=== PATIENT | female | born 1955 | race Caucasian/White ===

== ENCOUNTER 2017-12-25 13:16 | Emergency (ER) | payer BC ==
[~2017-12-25] VITALS: Ht 162.6 cm; Wt 72.6 kg
[2017-12-25 13:21] VITALS: BP_SYST 133
--- NOTE | 2017-12-25 13:24 | NUR ---
Patient to ER bed 08 to gown for evaluation. Side rails up.
--- NOTE | 2017-12-25 13:30 | NUR ---
Pt presents to ER c/o 09/25 pain on R index finger. Pt reportedly smashed her finger on car door. Pt denies any other complaints at this time. AOX4, ambulatory, no signs of acute distress.
--- NOTE | 2017-12-25 13:35 | NUR ---
ER at bedside examining patient.
--- NOTE | 2017-12-25 13:48 | NUR ---
Patient ambulated to radiology, accompanied by rad staff.
--- NOTE | 2017-12-25 14:18 | NUR ---
Pt's R index finger cleansed and dressing applied.
[2017-12-25 14:20] VITALS: BP_SYST 133
--- NOTE | 2017-12-25 14:20 | NUR ---
Patient given written and verbal discharge instructions and verbalizes understanding. ER MD discussed with patient the results and treatment provided. Patient in stable condition. ID arm band removed. Rx of Clindamycin given. Patient educated on pain management and to follow up with PMD. Pain Scale 3/10. Opportunity for questions provided and answered. Medication side effect fact sheet provided.
== END 2017-12-25 14:20 | disposition home or self-care (01) ==
LOC: SED 13:16
DX: S61.214A Laceration without foreign body of right ring finger without damage to nail, initial encounter (principal); I10 Essential (primary) hypertension; Z88.0 Allergy status to penicillin; Z87.442 Personal history of urinary calculi; W23.0XXA Caught, crushed, jammed, or pinched between moving objects, initial encounter; Y93.89 Activity, other specified; Y92.89 Other specified places as the place of occurrence of the external cause; Y99.8 Other external cause status
CPT/HCPCS: 99284

== ENCOUNTER 2023-03-30 05:30 | Inpatient (IN) | payer OTHER, MEDICARE ==
[2023-03-24 11:11] LABS: BASOPHILS % (AUTO) 0.4 % (0.0-2.0); EOSINOPHILS # (AUTO) 0.1 K/uL (0.0-0.4); HEMATOCRIT 35.3 % (36-48); HEMOGLOBIN 11.7 g/dL (12.0-16.0); LYMPHOCYTES % (AUTO) 32.5 % (20.5-51.5); MEAN CORPUSCULAR HEMOGLOBIN 33 pg (27-31); MEAN CORPUSCULAR HGB CONC 33 % (32-36); MEAN CORPUSCULAR VOLUME 99 fL (79.0-98.0); MONOCYTES # (AUTO) 0.4 K/uL (0.0-1.0); MONOCYTES % (AUTO) 6.5 % (1.7-9.3); NEUTROPHILS # (AUTO) 3.6 K/uL (1.8-7.7); NEUTROPHILS % (AUTO) 58.6 % (40.0-70.0); PLATELET COUNT (AUTO) 369 K/uL (130-430); RED BLOOD CELL COUNT(AUTO) 3.56 MIL/uL (4.2-6.2); RED CELL DISTRIBUTION WIDTH 13.7 % (9.0-15.0); WHITE BLOOD COUNT (AUTO) 6.1 K/uL (4.8-10.8)
[2023-03-24 11:27] LABS: PROTHROMBIN TIME 10.4 SECS (9.5-12.5)
[2023-03-24 11:28] LABS: ALBUMIN 3.9 g/dL (3.4-4.8); CALCIUM 9.2 mg/dL (8.4-11.0); CREATININE 0.58 mg/dL (0.55-1.30); POTASSIUM 3.8 mmol/L (3.5-5.1); TOTAL BILIRUBIN 0.6 mg/dL (0.0-1.0); TOTAL PROTEIN, SERUM 7.8 g/dL (6.4-8.3)
[~2023-03-30] VITALS: Ht 162.6 cm; Wt 72.6 kg
[2023-03-30] MEDS ORDERED: NOR10 PO (06:41)
[2023-03-30] MEDS ORDERED: ESCI10TA PO (06:41)
[2023-03-30] MEDS ORDERED: LIP40 PO (06:41)
[2023-03-30] MEDS ORDERED: HYDR-3927 PO (06:41)
[2023-03-30] MEDS ORDERED: LISI30TA36 PO (06:41)
[2023-03-30] MEDS ORDERED: DIPHENHYDRAMINE HCL 25 MG CAPSULE PO PRN (07:15)
[2023-03-30] MEDS ORDERED: METOCLOPRAMIDE HCL 10 MG/2 ML VIAL IVP PRN (07:15)
[2023-03-30] MEDS ORDERED: LACTULOSE 20 GM/30 ML UDC PO PRN (07:15)
[2023-03-30] MEDS ORDERED: BISACODYL 10 MG/SUPPOSITORY RC PRN (07:15)
[2023-03-30] MEDS ORDERED: NALOXONE HCL 0.4 MG/ML AMP (NARCAN) IVP PRN ×4 (07:15→10:15)
[2023-03-30] MEDS ORDERED: SCOPOLAMINE HYDROBROMIDE 1 MG PATCH .72 H (TRANSDERM-SCOP) TD ONE (07:19)
[2023-03-30] MEDS ORDERED: ACETAMINOPHEN 500 MG TABLET ONE (07:19)
[2023-03-30] MEDS ORDERED: GABAPENTIN 300 MG CAPSULE ONE (07:20)
[2023-03-30] MEDS ORDERED: oxyCODONE HCL 10 MG TAB.ER.12H PO ONE (07:20)
[2023-03-30] MEDS: SCOPOLAMINE HYDROBROMIDE 1 MG PATCH .72 H (TRANSDERM-SCOP) TD ONE (07:26)
[2023-03-30] MEDS: oxyCODONE HCL 10 MG TAB.ER.12H PO ONE (07:26)
[2023-03-30] MEDS: ACETAMINOPHEN 500 MG TABLET PO ONE (07:26)
[2023-03-30] MEDS: GABAPENTIN 300 MG CAPSULE PO ONE (07:26)
[2023-03-30] MEDS ORDERED: CEFAZOLIN SOD 2 GM in D5W 50 ML IV ONE (07:30)
[2023-03-30] MEDS ORDERED: LR 1,000 ML IV.SOLN IV ONE (07:45)
[2023-03-30] MEDS ORDERED: BUPIVACAINE /PF 0.25% 30 ML VIAL INJ ONE (07:45)
[2023-03-30] MEDS ORDERED: hydrALAZINE HCL 20 MG/ML VIAL ONE (07:45)
[2023-03-30] MEDS ORDERED: ONDANSETRON HCL 4 MG/2 ML VIAL ONE (07:45)
[2023-03-30] MEDS ORDERED: WATER FOR IRRIGATION,STERILE 1,000 ML IRRIG.SOLN IR ONE (07:45)
[2023-03-30] MEDS ORDERED: NS 1000 ML IV.SOLN IV ONE (07:45)
[2023-03-30] MEDS ORDERED: DEXAMETHASONE SOD PHOSPHATE 4 MG/ML VIAL ONE (07:45)
[2023-03-30] MEDS ORDERED: VANCOMYCIN HCL 1000 MG/VIAL IV ONE (07:45)
[2023-03-30] MEDS ORDERED: NS IRRIG SOLN 1000 ML IR ONE (07:45)
[2023-03-30] MEDS ORDERED: TRANEXAMIC ACID 1,000 MG/10 ML VIAL ONE (07:45)
[2023-03-30] MEDS ORDERED: SEVOFLURANE 15 MIN GAS INH ONE (07:45)
[2023-03-30] MEDS ORDERED: PROPOFOL DRIP 100 ML IV ONE (07:49)
[2023-03-30] MEDS ORDERED: fentaNYL CITRATE/PF 100 MCG/2 ML AMP ONE (07:49)
[2023-03-30] MEDS ORDERED: KETAMINE HCL IN 0.9 % NACL 50 MG/5 ML SYRINGE ONE (08:35)
[2023-03-30] MEDS ORDERED: MIDAZOLAM HCL 2 MG/2 ML VIAL (VERSED) ONE (08:35)
[2023-03-30] MEDS: HYDROmorphone 1 MG/ML INJ. CARTRIDGE ONE (10:09)
[2023-03-30] MEDS ORDERED: hydrALAZINE HCL 20 MG/ML VIAL IV PRN (10:15)
[2023-03-30] MEDS ORDERED: ONDANSETRON HCL 4 MG/2 ML VIAL IVP PRN ×2 (10:15→11:45)
[2023-03-30] MEDS ORDERED: KETOROLAC TROMETHAMINE 30 MG VIAL IM PRN (10:15)
[2023-03-30] MEDS ORDERED: HYDROmorphone 1 MG/ML INJ. CARTRIDGE IVP PRN ×4 (10:15→11:00)
[2023-03-30] MEDS: KETOROLAC TROMETHAMINE 30 MG VIAL ONE (10:30)
[2023-03-30] MEDS: HYDROmorphone 2 MG/ML VIAL ONE (10:35)
[2023-03-30] MEDS ORDERED: oxyCODONE HCL 5 MG TABLET PO PRN (11:00)
[2023-03-30] MEDS ORDERED: LORATADINE 10 MG TABLET PO PRN (11:00)
[2023-03-30] MEDS ORDERED: traMADol HCL HCL 50 MG TABLET (ULTRAM) PO PRN (11:00)
[2023-03-30 11:40] VITALS: BP_SYST 134; PULSE 95; RESP 18; TEMP 98.8; O2SAT 99
[2023-03-30] MEDS: KETOROLAC TROMETHAMINE 10 MG TABLET (TORADOL) PO SCH (14:13)
[2023-03-30] MEDS: ACETAMINOPHEN 500 MG TABLET PO SCH (14:14)
[2023-03-30] MEDS: HYDROmorphone 1 MG/ML INJ. CARTRIDGE IVP PRN (15:01)
[2023-03-30 15:08] VITALS: BP_SYST 138; PULSE 98; RESP 16; TEMP 99.6; O2SAT 96
[2023-03-30] MEDS: DIAZEPAM 5 MG TABLET (VALIUM) PO ONE (17:03)
[2023-03-30] MEDS: OXYCODONE/ACETAMINOPHEN *10*mg/325 mg TABLET PO ONE (17:51)
[2023-03-30 20:10] VITALS: BP_SYST 138; PULSE 100; RESP 20; TEMP 96.8; O2SAT 95
[2023-03-30] MEDS: SENNOSIDES/DOCUSATE SODIUM 1 TAB TABLET(SENOKOT-S) PO SCH (20:30)
[2023-03-31 00:26] VITALS: BP_SYST 155; PULSE 75; RESP 18; TEMP 96.9; O2SAT 100
[2023-03-31] MEDS: oxyCODONE HCL 5 MG TABLET PO PRN (00:26)
[2023-03-31 05:41] LABS: BASOPHILS % (AUTO) 0.1 % (0.0-2.0); EOSINOPHILS % (AUTO) 0.1 % (0.0-4.0); HEMATOCRIT 33.3 % (36-48); HEMOGLOBIN 11.2 g/dL (12.0-16.0); LYMPHOCYTES # (AUTO) 1.3 K/uL (1.0-5.5); LYMPHOCYTES % (AUTO) 13.3 % (20.5-51.5); MEAN CORPUSCULAR HEMOGLOBIN 33 pg (27-31); MEAN CORPUSCULAR HGB CONC 34 % (32-36); MEAN CORPUSCULAR VOLUME 98 fL (79.0-98.0); MONOCYTES # (AUTO) 0.5 K/uL (0.0-1.0); MONOCYTES % (AUTO) 5.3 % (1.7-9.3); NEUTROPHILS # (AUTO) 7.9 K/uL (1.8-7.7); NEUTROPHILS % (AUTO) 81.2 % (40.0-70.0); PLATELET COUNT (AUTO) 317 K/uL (130-430); RED BLOOD CELL COUNT(AUTO) 3.41 MIL/uL (4.2-6.2); WHITE BLOOD COUNT (AUTO) 9.7 K/uL (4.8-10.8)
[2023-03-31 06:22] LABS: ALBUMIN 3.6 g/dL (3.4-4.8); CALCIUM 8.8 mg/dL (8.4-11.0); CREATININE 0.55 mg/dL (0.55-1.30); POTASSIUM 3.6 mmol/L (3.5-5.1); TOTAL BILIRUBIN 1.2 mg/dL (0.0-1.0); TOTAL PROTEIN, SERUM 7.2 g/dL (6.4-8.3)
[2023-03-31 08:27] VITALS: BP_SYST 180; PULSE 88; RESP 20; TEMP 97.9; O2SAT 100
[2023-03-31] MEDS: ASPIRIN 81 MG TAB.CHEW PO SCH (08:50)
[2023-03-31 08:56] VITALS: O2SAT 96
[2023-03-31 11:17] VITALS: BP_SYST 124; PULSE 91; RESP 16; TEMP 97.8; O2SAT 96
[2023-03-31] MEDS: ceFAZolin SODIUM 2 GM in D5W 100 ML IV ONE (11:32)
[2023-03-31] MEDS: CELECOXIB 200 MG CAPSULE PO SCH (12:56)
[2023-03-31 13:34] VITALS: BP_SYST 124; PULSE 91; RESP 16; TEMP 97.8; O2SAT 96
== END 2023-03-31 15:20 | disposition home health service (06) | DRG 470 ==
LOC: SMU 05:30
PROVIDERS: ADMIT Student in an Organized Health Care Education/Training Program; ATTEND Student in an Organized Health Care Education/Training Program
PROC: 0SRC0J9 Replacement of Right Knee Joint with Synthetic Substitute, Cemented, Open Approach (ICD-10-PCS; principal; 2023-03-30 07:45)
DX: M17.11 Unilateral primary osteoarthritis, right knee (principal)
CPT/HCPCS: 36415; 71046; 73560; 73564; 80053; 85025; 85610; 85730; 87081; 88305; 88311; 96379; 97110-GP; 97116-GP; 97530-GP; C1713; C1776; J0360; J0690; J0696; J1100; J1170; J1885; J2405; J2704; J3010; J3370; J3465; J3490; J7030; J7060; J7120